=== PATIENT | female | born 1990 | race Caucasian/White ===

== ENCOUNTER 2016-08-29 09:13 | Inpatient (IN) ==
[2016-08-29] MEDS ORDERED: TYLENOL PO PRN (20:15)
[2016-08-29] MEDS ORDERED: STADOL IV PRN ×3 (20:15)
[2016-08-29] MEDS ORDERED: PEPCID IV PRN (20:15)
[2016-08-29] MEDS ORDERED: AMBIEN PO PRN (20:15)
[2016-08-29] MEDS ORDERED: BRETHINE SUBQ PRN (20:15)
[2016-08-29] MEDS ORDERED: ZOFRAN IV PRN (20:15)
[2016-08-29] MEDS ORDERED: PITOCIN 30 UNITS/LR 30 UNITS/500 ML IV.SOLN IV SCH (20:15)
[2016-08-29] MEDS ORDERED: KEFZOL 1 GM/D5W 1 GM/50 ML IVPB IV PRN (20:15)
[2016-08-29] MEDS ORDERED: AMPICILLIN 2 GM/NS 2 GM/100 ML IVPB IV ONE (21:30)
[2016-08-29] MEDS: LR 1,000 ML IV ONE (21:30)
[2016-08-29] MEDS ORDERED: CYTOTEC PO ONE (22:00)
[2016-08-29 22:04] LABS: MANUAL DIFF NEEDED? NO; URINE SOURCE VOIDED
[2016-08-29 22:07] LABS: BASO% 0.3 % (0.0-0.8); EOS# 0.27 X1000 (0.0-0.7); EOS% 2.4 % (0.0-10.0); HEMATOCRIT 34.5 % (37.0-47.0); HEMOGLOBIN 11.5 g/dL (12.0-16.0); IMM GRAN# 0.05 X1000 (0.0-0.04); IMM GRAN% 0.4 % (0.0-0.5); LYMPH# 2.32 X1000 (1.2-3.4); LYMPH% 20.3 % (20.5-51.1); MCH 29.9 PG (27-31); MCHC 33.3 g/dL (33-37); MCV 89.6 FL (81-99); MONO# 0.73 X1000 (0.11-0.59); MONO% 6.4 % (1.7-9.3); MPV 11.3 FL (7.4-10.4); NEUT% 70.2 % (42.2-75.2); PLT 241 X1000 (130-400); RBC 3.85 XMIL (4.2-5.4)
[2016-08-29 22:08] LABS: BILIRUBIN URINE NEGATIVE (NEGATIVE); BLOOD URINE NEGATIVE (NEGATIVE); CLARITY CLEAR (CLEAR); COLOR YELLOW; GLUCOSE URINE NEGATIVE (NEGATIVE); LEUKOCYTES URINE NEGATIVE (NEGATIVE); NITRITE URINE NEGATIVE (NEGATIVE); PH URINE 6.5; PROTEIN URINE NEGATIVE (NEGATIVE); UROBILINOGEN URINE NORMAL
[2016-08-30] MEDS ORDERED: CYTOTEC PO SCH (02:00)
[2016-08-30] MEDS: AMPICILLIN 1 GM/NS 1 GM/50 ML IVPB IV SCH ×3 (02:08→09:21)
[2016-08-30] MEDS: LR 1,000 ML IV ONE (02:15)
[2016-08-30] MEDS ORDERED: LR 1,000 ML IV SCH (02:15)
[2016-08-30] MEDS ORDERED: NAROPIN 0.2% EPIDURAL PRN (07:17)
[2016-08-30] MEDS ORDERED: FENTANYL-BUPIV-NS 2 MCG-0.1% 200 ML EPIDURAL PRN (07:17)
[2016-08-30] MEDS ORDERED: NEO-SYNEPHRINE ONE (14:42)
[2016-08-30] MEDS ORDERED: ZOFRAN ONE (14:42)
[2016-08-30] MEDS ORDERED: PITOCIN ONE (14:42)
[2016-08-30] MEDS ORDERED: ROBINUL ONE (14:42)
[2016-08-30] MEDS ORDERED: NS 250 ML ONE (14:43)
[2016-08-30] MEDS ORDERED: XYLOCAINE-MPF 2% ONE (14:46)
[2016-08-30] MEDS ORDERED: BENADRYL IV PRN ×2 (14:51→16:56)
[2016-08-30] MEDS ORDERED: NARCAN INJ PRN ×2 (14:51→16:56)
[2016-08-30] MEDS ORDERED: BICITRA ONE (14:51)
[2016-08-30] MEDS ORDERED: ZOFRAN ODT PO PRN ×2 (14:51→16:56)
[2016-08-30] MEDS ORDERED: ZOFRAN IV PRN ×4 (14:51→16:56)
[2016-08-30] MEDS ORDERED: DIPRIVAN 1% ONE (15:01)
--- NOTE | 2016-08-30 15:02 | HISTORY AND PHYSICAL ---
SURGEON: Dr. Reardon. DIAGNOSES: 1. Term . 2. Failed induction of labor. SUMMARY: Aura Adams is a 25-year-old 2, para 0-0-1-0 who is at 40-1/2 weeks gestation. Her blood type is A positive, rubella immune. Hepatitis B surface antigen, HIV are negative. Group B strep was positive. The patient was admitted to the hospital last night by Dr. Davalos and given Cytotec by a mouth. She also was started on group B strep prophylaxis. IV Pitocin was begun early this morning. In spite of IV Pitocin and Cytotec she has failed to make any progress towards labor. After discussing options with the patient she prefers to have a section rather than begin a 2nd day of induction. We have discussed the risk, benefits, possible complications, reasonable expectations of delivery and she agrees to proceed with this procedure. PAST MEDICAL HISTORY: Patient had an ectopic . Otherwise there is no chronic medical or surgical illnesses. CURRENT MEDICATIONS: vitamins. ALLERGIES: None. PHYSICAL EXAMINATION: GENERAL: Shows an obese, gravid female. VITAL SIGNS: Stable. She is afebrile. CARDIOVASCULAR: Regular rate and rhythm without murmurs, rubs, or gallops. PULMONARY: Clear. BREASTS: No masses. ABDOMEN: Gravid, cervix is 1 cm with virtually no effacement. The cervix is very posterior. EXTREMITIES: No clubbing, edema or cyanosis. IMPRESSION: 1. Term . 2. Failed induction of labor. PLAN: For these indications will proceed with delivery. Risks of the surgery including pain, bleeding, infection, bowel or bladder injury, and anesthesia complications have been discussed. Alternatives to the including a 2nd day of induction were also discussed. cc: Channing Reardon MD
[2016-08-30] MEDS ORDERED: EPHEDRINE ONE (15:03)
[2016-08-30] MEDS ORDERED: DURAMORPH ONE (15:27)
[2016-08-30] MEDS ORDERED: TORADOL ONE (16:37)
[2016-08-30] MEDS ORDERED: LR 1,000 ML ONE (16:38)
[2016-08-30] MEDS ORDERED: TORADOL IV PRN (16:41)
[2016-08-30] MEDS ORDERED: MORPHINE IV ONE (16:45)
--- NOTE | 2016-08-30 16:45 | OPERATIVE NOTE ---
PROCEDURE DATE: 08/30/2016 SURGEON: Dr. Reardon. ANESTHESIA: epidural OPERATION PERFORMED: Primary low transverse . PREOP DIAGNOSES: 1. Term . 2. Failure to progress in labor. POSTOP DIAGNOSES: 1. Term . 2. Failure to progress in labor. FINDINGS: At 1539 a 6-pound 14-ounce male was delivered in vertex presentation. There was a nuchal cord x1. Apgars were 9 at 1 minute and 10 at 5 minutes. SUMMARY: Ms. Adams was taken back to the operating room where the epidural was dosed. Once satisfactory conduction anesthesia was obtained the abdomen was prepped and draped in usual fashion. A Sanchez catheter was in the urinary bladder. A Pfannenstiel incision was made. This incision was taken down to the fascia. The fascia was excised transversely. The underlying rectus muscle was bluntly and sharply dissected free. The rectus muscle was in midline. Peritoneum was entered. The lower uterine segment identified. A bladder flap was created. A low transverse incision was made across the myometrium. The incision was extended laterally using digital pressure. Membranes were ruptured revealing clear fluid. The infant's head was delivered through this incision without difficulty. Nuchal cord was reduced. The shoulders and body delivered without complications. The oropharynx was bulb suctioned. The cord was clamped, cut, was handed to nurses for further care and evaluation. Cord blood was obtained. Placenta was manually removed. The uterus delivered abdominal wall and explored. All membrane fragments were removed. The patient had significant pain at this point and was given IV sedation. The uterine incision was oversewn using a running 0 chromic interlocking suture followed by several [id number] chromic sutures for complete hemostasis across the suture line. Uterus placed back in pelvic cavity. The pelvic cavity was irrigated with copious amounts of sterile water. Complete hemostasis was noted. First and 2nd sponge, instrument and needle counts were reported as correct as the peritoneum was closed using a running 0 chromic suture. The fascia was closed using running Vicryl sutures x2. The adipose tissue was reapproximated using a running 3-0 Vicryl suture. The final sponge, instrument and needle count reported as correct. The skin edges reapproximated using running 3-0 Monocryl suture. Blood loss approximately 600 mL. There were no complications. The patient went to the recovery room in stable condition. cc: Channing Reardon MD MTDD
[2016-08-30] MEDS: MORPHINE IV PRN ×2 (16:50→20:18)
[2016-08-30] MEDS ORDERED: PITOCIN 10 UNITS/LR 10 UNIT/1,000 ML IV.SOLN IV SCH (16:53)
[2016-08-30] MEDS ORDERED: PITOCIN IM PRN (16:53)
[2016-08-30] MEDS ORDERED: NORCO-5 PO PRN (16:53)
[2016-08-30] MEDS ORDERED: PERCOCET-5 PO PRN (16:53)
[2016-08-30] MEDS ORDERED: HYDROXYZINE PO PRN (16:53)
[2016-08-30] MEDS ORDERED: HYDROXYZINE IM PRN (16:53)
[2016-08-30] MEDS ORDERED: CYTOTEC PO PRN (16:53)
[2016-08-30] MEDS ORDERED: PHENERGAN IM PRN (16:53)
[2016-08-30] MEDS ORDERED: AMBIEN PO PRN (16:53)
[2016-08-30] MEDS ORDERED: DULCOLAX PR PRN (16:53)
[2016-08-30] MEDS ORDERED: PITOCIN 20 UNITS/LR 20 UNITS/1,000 ML IV.SOLN IV ONE (16:53)
[2016-08-30] MEDS ORDERED: MYLICON PO PRN (16:53)
[2016-08-30] MEDS ORDERED: NORCO-10 PO PRN (16:53)
[2016-08-30] MEDS ORDERED: DEMEROL PO PRN ×2 (16:53)
[2016-08-30] MEDS ORDERED: BOOSTRIX VACCINE IM ONE (16:53)
[2016-08-30] MEDS ORDERED: M-M-R II VACCINE SUBQ ONE (16:53)
[2016-08-30] MEDS ORDERED: DEMEROL IM PRN (16:53)
[2016-08-30] MEDS: PERCOCET-10 PO PRN (17:55)
[2016-08-30] MEDS: MYLICON PO SCH ×2 (18:34→20:14)
[2016-08-30] MEDS: PERICOLACE PO SCH (20:13)
[2016-08-30] MEDS: TORADOL IV SCH (22:34)
[2016-08-31] MEDS: PERCOCET-10 PO PRN ×6 (01:40→22:56)
[2016-08-31] MEDS: TORADOL IV SCH ×2 (04:09→10:07)
[2016-08-31 06:59] LABS: HEMATOCRIT 28.7 % (37.0-47.0); HEMOGLOBIN 9.6 g/dL (12.0-16.0); MCH 30.5 PG (27-31); MCHC 33.4 g/dL (33-37); MCV 91.1 FL (81-99); MPV 11.8 FL (7.4-10.4); RBC 3.15 XMIL (4.2-5.4)
[2016-08-31] MEDS: MOTRIN PO PRN ×2 (08:04→17:17)
[2016-08-31] MEDS: MYLICON PO SCH ×4 (10:08→20:59)
[2016-08-31] MEDS: PRECARE PO SCH (10:08)
[2016-08-31] MEDS ORDERED: LR 1,000 ML IV SCH (16:14)
[2016-08-31] MEDS: PERICOLACE PO SCH (20:59)
[2016-09-01] MEDS: MOTRIN PO PRN ×2 (03:37→13:32)
[2016-09-01] MEDS: PERCOCET-10 PO PRN ×4 (03:37→14:41)
[2016-09-01] MEDS: PRECARE PO SCH (09:12)
[2016-09-01] MEDS: MYLICON PO SCH ×2 (09:12→13:30)
[2016-09-01 11:33] VITALS: BP 116/77
--- NOTE | 2016-09-01 18:46 | DISCHARGE SUMMARY ---
ADMISSION DATE: 08/29/2016 DISCHARGE DATE: 09/01/2016 ADMITTING DIAGNOSIS: Term , for labor induction. DISCHARGE DIAGNOSIS: Term , delivered via low transverse section for failure to progress. CONDITION: Stable. DIET: As tolerated. ACTIVITY: Routine and routine postop instructions. She is to follow up in [address] Reardon. She is to take [place] 10 for pain with Motrin 800 and also vitamins and iron tablets. Please refer to Ms. Adams's records, H and P and operative note. She was admitted for delivery. Underwent a delivery. Since that time, she has done well. Currently postop day 2. Ambulating and voiding and tolerating p.o. Her vital signs are stable. She is afebrile. Lungs: Clear. Heart: Regular sinus rhythm. Abdomen: Is slightly distended. Incision is dry and intact. No erythema or drainage. +2 lower extremity edema. No new laboratory value. Her post delivery hemoglobin and hematocrit was 9.6/28.7 so we will discharge with above instructions. cc: MD Channing Hendrickson MD
== END 2016-09-01 15:20 | disposition home or self-care (01) ==
LOC: P.LD 20:12 → P.WC 08-30 17:25
PROVIDERS: ADMIT Obstetrics & Gynecology; ATTEND Obstetrics & Gynecology

== ENCOUNTER 2018-12-20 04:44 | Inpatient (IN) ==
[2018-12-20] MEDS ORDERED: KEFZOL 1 GM/D5W 1 GM/50 ML IVPB IV PRN ×2 (04:59→16:32)
--- NOTE | 2018-12-20 05:06 | HISTORY AND PHYSICAL ---
CHIEF COMPLAINT: History of for elective repeat . HISTORY OF PRESENT ILLNESS: Patient 28-year-old white female, G3, P1, A1 at 39 and 0/7 weeks gestation by a first-trimester ultrasound expressed desire for elective repeat . The patient's course unremarkable except for anemia. PAST MEDICAL HISTORY: Unremarkable. PAST SURGICAL HISTORY: She has had prior , ear surgery, and she also had surgery for ectopic . PAST OB HISTORY: G3, P1, A1, x1 and as noted above ectopic which required surgery. MAKE UP ARTIST HISTORY: Menarche at age 8. FAMILY HISTORY: Unremarkable. REVIEW OF SYSTEMS: All systems reviewed and noncontributory. MEDICATIONS: Iron and occasionally vitamins. ALLERGIES: No known drug allergies. SOCIAL HISTORY: Tobacco use 1 pack per day. Alcohol use none. PHYSICAL EXAMINATION: VITAL SIGNS: Height 5 feet 7 inches, weight 224 pounds, temperature 98.1 degrees, pulse of 96, blood pressure 136/82, respirations 20. heart rate was noted to be 133. HEENT: Pupils equal, round, reactive to light, accommodation. Extraocular movements intact. Oropharynx clear. NECK: Supple. No thyromegaly. LUNGS: Clear to auscultation. HEART: Regular rate and rhythm. ABDOMEN: Gravid, nontender. EXTREMITIES: No clubbing, cyanosis, or edema noted. NEUROLOGIC: Cranial nerves 2-12 grossly intact. Motor 5/5. ASSESSMENT/PLAN: A 28-year-old white female, G3, P1, A1 at 39 weeks gestation with history of prior section for elective repeat section. Patient scheduled for surgery on 12/20/2018. The patient counseled about the risks of surgery including bleeding, infection, bowel or bladder injury. cc: Genaro Aly III, MD
[2018-12-20] MEDS ORDERED: REGLAN IV ONE (05:07)
[2018-12-20] MEDS ORDERED: BICITRA PO ONE (05:07)
[2018-12-20] MEDS: LR 1,000 ML IV SCH ×3 (05:30→16:36)
[2018-12-20 05:49] LABS: URINE SOURCE VOIDED
[2018-12-20 05:51] LABS: BILIRUBIN URINE NEGATIVE (NEGATIVE); BLOOD URINE 1+ (NEGATIVE); CLARITY VERY CLOUDY (CLEAR); COLOR ORANGE; GLUCOSE URINE NEGATIVE (NEGATIVE); KETONE URINE TRACE mg/dL (NEGATIVE); LEUKOCYTES URINE 2+ (NEGATIVE); NITRITE URINE POSITIVE (NEGATIVE); PH URINE 6.5; PROTEIN URINE 2+(100 mg/dL) mg/dL (NEGATIVE); UROBILINOGEN URINE 1 mg/dL
[2018-12-20 05:54] LABS: BASO# 0.04 X1000 (0.0-0.2); BASO% 0.3 % (0.0-0.8); EOS# 0.26 X1000 (0.0-0.7); EOS% 1.9 % (0.0-10.0); HEMATOCRIT 34.7 % (37.0-47.0); HEMOGLOBIN 11.4 g/dL (12.0-16.0); IMM GRAN# 0.11 X1000 (0.0-0.04); IMM GRAN% 0.8 % (0.0-0.5); LYMPH% 20.3 % (20.5-51.1); MCH 28.9 PG (27-31); MCHC 32.9 g/dL (33-37); MCV 87.8 FL (81-99); MONO# 0.89 X1000 (0.11-0.59); MONO% 6.4 % (1.7-9.3); MPV 10.6 FL (7.4-10.4); NEUT% 70.3 % (42.2-75.2); PLT 341 X1000 (130-400); RBC 3.95 XMIL (4.2-5.4); RDW 17.7 % (11.5-14.5)
[2018-12-20 05:57] LABS: UR AMPHETAMINES QUAL NONE DETECTED (NONE DETECT); UR BARBITUATES QUAL NONE DETECTED (NONE DETECT); UR BENZODIAZEPIN QUAL NONE DETECTED (NONE DETECT); UR CANNABINOIDS QUAL NONE DETECTED (NONE DETECT); UR COCAINE QUAL NONE DETECTED (NONE DETECT); UR METHADONE QUAL NONE DETECTED (NONE DETECT); UR METHAMPHETAMINE QUAL NONE DETECTED (NONE DETECT); UR OPIATES QUAL NONE DETECTED (NONE DETECT); UR OXYCODONE QUAL NONE DETECTED (NONE DETECT); UR PCP QUAL NONE DETECTED (NONE DETECT); UR PROPOXYPHENE QUAL NONE DETECTED (NONE DETECT); UR TCA QUAL NONE DETECTED (NONE DETECT)
[2018-12-20] MEDS ORDERED: DURAMORPH ONE (06:55)
[2018-12-20] MEDS ORDERED: PITOCIN ONE (06:57)
[2018-12-20] MEDS ORDERED: ZOFRAN ONE (06:57)
[2018-12-20] MEDS ORDERED: DECADRON ONE (06:59)
[2018-12-20] MEDS ORDERED: TORADOL ONE (06:59)
[2018-12-20] MEDS ORDERED: VERSED ONE (07:33)
[2018-12-20] MEDS ORDERED: BOOSTRIX VACCINE IM ONE (07:51)
[2018-12-20] MEDS ORDERED: PHENERGAN IM PRN (07:51)
[2018-12-20] MEDS ORDERED: HYDROXYZINE IM PRN (07:51)
[2018-12-20] MEDS ORDERED: PITOCIN 20 UNITS/NS 20 UNITS/1,000 ML IV.SOLN IV ONE (07:51)
[2018-12-20] MEDS ORDERED: DEMEROL IM PRN (07:51)
[2018-12-20] MEDS ORDERED: PITOCIN IM PRN (07:51)
[2018-12-20] MEDS ORDERED: DEMEROL PO PRN ×2 (07:51)
[2018-12-20] MEDS ORDERED: ATARAX PO PRN (07:51)
[2018-12-20] MEDS ORDERED: AMBIEN PO PRN (07:51)
[2018-12-20] MEDS ORDERED: M-M-R II VACCINE SUBQ ONE (07:51)
[2018-12-20] MEDS ORDERED: PERCOCET-5 PO PRN (07:51)
[2018-12-20] MEDS ORDERED: DULCOLAX PR PRN (07:51)
[2018-12-20] MEDS ORDERED: MYLICON PO PRN (07:51)
[2018-12-20] MEDS ORDERED: PITOCIN 10 UNITS/NS 1,000 ML IV SCH (08:00)
[2018-12-20] MEDS ORDERED: DILAUDID IV PRN (09:03)
[2018-12-20] MEDS: MYLICON PO SCH ×2 (09:04→13:02)
--- NOTE | 2018-12-20 12:48 | OPERATIVE NOTE ---
PROCEDURE DATE: 12/20/2018 PREOPERATIVE DIAGNOSIS: Intrauterine at 39 weeks with a history of prior section. POSTOPERATIVE DIAGNOSES: 1. Intrauterine at 39 weeks with a history of prior section. 2. Operative delivery of a female infant, 6 pounds 5 ounces with Apgars of 9 and 10 at 07:16 on 12/20/2018. PROCEDURE: Repeat low-transverse section. SURGEON: Genaro Aly MD. CHICKEN DRESSER: MD Sarthak. ANESTHESIA: Spinal, Yajaira Bowers MD. FINDINGS: Normal-appearing ovaries and uterus. Right fallopian tube segment was missing from previous ectopic surgery. Left tube was normal. COMPLICATIONS: None. ESTIMATED BLOOD LOSS: 500 mL. SPECIMENS REMOVED: Placenta. DRAINS: Sanchez to straight drain. COUNTS: All counts were correct x3. INDICATIONS: Patient is a 28-year-old female, G3, P1, A1 at 39 weeks gestation with a history of prior section for elective repeat section. Patient counseled about the risks of surgery including bleeding, infection, bowel or bladder injury. DESCRIPTION OF PROCEDURE: The patient was taken to Labor and Delivery OR. Spinal anesthesia was placed and the patient was placed in supine position with a roll under her right hip. Then, she was prepped and draped in a sterile fashion with placement of Sanchez catheter. Adequate anesthesia was noted by using Allis clamps on skin and then a Pfannenstiel skin incision was made on the lower abdomen using a scalpel. This was then taken down sharply to the fascial layer, a small cecilia was made in the rectus fascia. Fascial incision was then extended bilaterally by curved Cai scissors and then blunt and sharp dissection of the superior and inferior aspects of the rectus fascia was performed. At this point in time, the rectus muscle was then divided in the midline and peritoneal layer was entered bluntly. The peritoneal incision was extended superiorly and inferiorly with care taken to avoid the bladder. Bladder reflection was created using Metzenbaum scissors. Then bladder blade was placed into the abdominal cavity. A transverse incision was made on lower uterine segment. This was extended bilaterally by the surgeon's fingers. Clear fluid was noted upon entry into the amniotic cavity. head was then elevated toward the hysterotomy site. was bulb suction of nose and mouth at this point in time, then the rest of the body was delivered atraumatically with gentle fundal pressure. Umbilical cord was clamped twice and cut. Infant handed to the nursery nurse in attendance for delivery. Cord blood sample was obtained at this time. The placenta was then manually extracted. Uterus was exteriorized. Wet lap was placed around the uterus. Dry lap was then used to curette the uterine cavity of clots and debris x2. The uterine incision was then closed using 0 chromic in a running locking fashion x1. A small area of oozing was noted the lower segment and this was then imbricated using another 0 chromic stitch and then good hemostasis was noted. The posterior cul- de-sac was then irrigated copiously and the uterus was then replaced back into the abdominal cavity, noting at that time that the right fallopian tube had a segment missing from previous ectopic . The pericolic gutters were cleansed using moist lap sponges. Uterine incision and bladder reflection were inspected and good hemostasis was noted. The peritoneal layer was then closed using 2-0 chromic in a running fashion x1. The fascial layer was then closed using 0 PDS in a running fashion x1. Subcutaneous layer was then irrigated and electrocautery was used to obtain hemostasis, then skin was reapproximated using cecilia. The patient tolerated the procedure well, was taken to the recovery room in stable condition. All counts were correct x3. cc: Genaro Aly III, MD
[2018-12-20] MEDS: TORADOL IV SCH ×2 (13:00→20:00)
[2018-12-20] MEDS ORDERED: MAGNESIUM SULFATE 4 GM/S.W.I. 4 GM/100 ML IVPB IV ONE (16:30)
[2018-12-20] MEDS ORDERED: REGLAN PO ONE (16:32)
[2018-12-20] MEDS ORDERED: PEPCID PO ONE (16:32)
[2018-12-20] MEDS ORDERED: LR 1,000 ML IV SCH (16:45)
[2018-12-21] MEDS: TORADOL IV SCH (02:10)
[2018-12-21] MEDS: MOTRIN PO PRN ×3 (05:41→22:05)
[2018-12-21] MEDS: PERCOCET-10 PO PRN ×5 (05:41→22:06)
--- NOTE | 2018-12-21 06:20 | OB/GYN PROGRESS NOTE ---
Progress Note OB - . Patient Problems: Current Active Problems Problem Status Onset History of ectopic Acute OB Progress Note: Vital Signs - 24 hr 12/20/18 07:55 12/20/18 08:00 12/20/18 08:10 Temperature 97.1 F L Pulse Rate 93 H 92 H 90 Respiratory Rate 20 20 20 Blood Pressure 124/61 Blood Pressure [Right Arm] 124/61 133/69 124/72 O2 Sat by Pulse Oximetry 98 99 99 12/20/18 08:20 12/20/18 08:30 12/20/18 08:40 Temperature Pulse Rate 82 82 72 Respiratory Rate 20 18 20 Blood Pressure Blood Pressure [Right Arm] 135/72 133/67 131/79 O2 Sat by Pulse Oximetry 100 97 100 12/20/18 08:50 12/20/18 09:00 12/20/18 18:28 Temperature 97.7 F Pulse Rate 79 78 90 Respiratory Rate 20 20 18 Blood Pressure 132/67 139/75 Blood Pressure [Right Arm] 131/88 132/67 O2 Sat by Pulse Oximetry 100 98 98 12/20/18 22:00 12/21/18 02:15 12/21/18 05:45 Temperature 97.0 F L 97.2 F L Pulse Rate 86 78 83 Respiratory Rate 18 18 18 Blood Pressure 131/78 130/94 130/78 Blood Pressure [Right Arm] O2 Sat by Pulse Oximetry Laboratory Results - last 24 hr 12/20/18 05:30 Blood Type A POSITIVE Antibody Screen NEGATIVE HPI: Pt seen and examined. Currently w/o complaints. Ambulating and urinating w/o difficulty. Pain well controlled on PO pain med. Tolerating regular diet. Reports flatus denies BM. +bottle feeding and decreased lochia. VS: please see above. GEN: NAD CV: RRR RESP: CTA b/l ABD: soft, appropriately tender to palpation, FF at umbilicus INC: C/D/I, cecilia insitu EXT: neg CT LABS: pending ASSESSMENT: 28yo POD#1 s/p repeat CD PLAN: -Con't PO pain meds -OOB to ambulation -con't reg diet -con't routine PP care
[2018-12-21] MEDS: PERICOLACE PO SCH ×2 (07:14→21:00)
[2018-12-21] MEDS: MYLICON PO SCH ×5 (07:14→21:00)
[2018-12-21 07:37] LABS: BASO# 0.03 X1000 (0.0-0.2); BASO% 0.2 % (0.0-0.8); EOS# 0.35 X1000 (0.0-0.7); EOS% 2.9 % (0.0-10.0); HEMATOCRIT 33.1 % (37.0-47.0); HEMOGLOBIN 10.5 g/dL (12.0-16.0); IMM GRAN# 0.06 X1000 (0.0-0.04); IMM GRAN% 0.5 % (0.0-0.5); LYMPH% 24.5 % (20.5-51.1); MCH 28.5 PG (27-31); MCHC 31.7 g/dL (33-37); MCV 89.9 FL (81-99); MONO# 0.94 X1000 (0.11-0.59); MONO% 7.7 % (1.7-9.3); MPV 10.3 FL (7.4-10.4); NEUT# 7.84 X1000 (1.4-6.5); NEUT% 64.2 % (42.2-75.2); PLT 304 X1000 (130-400); RBC 3.68 XMIL (4.2-5.4); WBC 12.22 X1000 (4.8-10.8)
[2018-12-21] MEDS ORDERED: LR 1,000 ML IV SCH (07:51)
[2018-12-22] MEDS: PERCOCET-10 PO PRN ×3 (02:23→09:57)
[2018-12-22] MEDS: MOTRIN PO PRN (06:38)
[2018-12-22 09:30] VITALS: BP 159/89
[2018-12-22] MEDS: MYLICON PO SCH (09:30)
--- NOTE | 2018-12-22 13:42 | DISCHARGE SUMMARY ---
ADMISSION DATE: 12/20/2018 DISCHARGE DATE: 12/22/2018 ADMISSION DIAGNOSIS: A 28-year-old white female, G3, P1, A1 at 39 weeks gestation with history of previous section, for elective repeat section. FINAL DIAGNOSES: 1. A 28-year-old white female, G3, P1, A1 at 39 weeks gestation with history of previous section, for elective repeat section. 2. Operative delivery of a female infant, 6 pounds 5 ounces with Apgars of 9 and 10 at 7:16 on 12/20/2018. PROCEDURES: Repeat low transverse section. BRIEF HISTORY: The patient is a 28-year-old white female, G3, P1, A1 at 39 and 0/7 weeks gestation by first-trimester ultrasound, who has had a previous section and will have elective repeat section. The patient's course was unremarkable except for anemia and tobacco use. PAST MEDICAL HISTORY: Unremarkable. PAST SURGICAL HISTORY: Prior section, ear surgery, also had surgery for ectopic . PAST OBSTETRICAL HISTORY: G3, P1, A1. section x1 and also had ectopic . GYNECOLOGICAL HISTORY: Menarche at age 8. FAMILY HISTORY: Unremarkable. REVIEW OF SYSTEMS: All systems reviewed and noncontributory. MEDICATIONS: Iron and occasionally vitamins. ALLERGIES: No known drug allergies. SOCIAL HISTORY: Tobacco use, 1 pack per day. Alcohol use, none. PHYSICAL EXAMINATION: Vital Signs: Height 5 feet 7 inches, weight 224 pounds, temperature 98.1 degrees, pulse of 96, blood pressure 136/82, respirations 20. heart rate was 133. HEENT: Pupils equal, round, reactive to light accommodation. Extraocular movements intact. Oropharynx clear. Neck: Supple. No thyromegaly. Lungs: Clear to auscultation. Heart: Regular rate and rhythm. Abdomen: Gravid, nontender. Extremities: No clubbing, cyanosis, or edema noted. Neurologic: Cranial nerves 2-12 grossly intact. Motor 5/5. ASSESSMENT AND PLAN: A 28-year-old white female, G3, P1, A1 at 39 weeks gestation with history of prior section for elective repeat section. The patient scheduled for repeat section on 12/20/2018. The patient counseled about the risks of surgery including bleeding, infection, bowel or bladder injury. The patient had a repeat section on 12/20/2018 and had operative delivery of a female infant, 6 pounds 5 ounces with Apgars of 9 and 10 at 07:16 on 12/20/2018. The patient's postoperative course was unremarkable. She was advanced on her diet as tolerated and became ambulatory on postoperative day 1. Her postoperative hemoglobin was 10.5 and her postoperative hematocrit was 33.1. Patient had good urine output and stable vital signs and on postoperative day #2, she was ambulating, had mild lochia and had positive bowel activity. She expressed desire to be discharged home. DISCHARGE PLANS: Patient will be discharged home. Follow up on 12/27/2018 for staple removal. She was instructed on pelvic rest and lifting precautions for the next 6 weeks. DISCHARGE MEDICATIONS: Percocet 10, dispense 20 with no refills. Motrin 800 mg, dispense 30 with 1 refill. Iron sulfate 325 mg, dispense 30 with 1 refill, and Colace 100 mg, dispense 30 with 1 refill. cc: Genaro Aly III, MD
== END 2018-12-22 10:50 | disposition home or self-care (01) | DRG 788 ==
LOC: P.LD 04:44
PROVIDERS: ADMIT Obstetrics & Gynecology; ATTEND Obstetrics & Gynecology